=== PATIENT | female | born 2000 | race Caucasian/White ===

== ENCOUNTER 2019-03-11 19:08 | Emergency (ER) | payer OTHER ==
[~2019-03-11] VITALS: Ht 160 cm; Wt 49.4 kg
[2019-03-11] MEDS ORDERED: PRENA1 TRUE CO1 EACH (19:16)
== END 2019-03-11 22:55 | disposition home or self-care (01) ==
LOC: ER 19:08
DX: K52.89 Other specified noninfective gastroenteritis and colitis (principal)